=== PATIENT | female | born 1945 | race Caucasian/White ===

== ENCOUNTER 2023-07-31 13:30 | Outpatient (CLI) | payer MEDICARE | END 2023-07-31 13:31 | disposition home or self-care (01) | LOC: CSHMRI 13:30 | PROVIDERS: ATTEND Neurological Surgery | DX: M51.36 Other intervertebral disc degeneration, lumbar region (principal); M48.07 Spinal stenosis, lumbosacral region; M48.061 Spinal stenosis, lumbar region without neurogenic claudication; M51.86 Other intervertebral disc disorders, lumbar region | CPT/HCPCS: 72148 ==